=== PATIENT | female | born 1995 | race Two or more races ===

== ENCOUNTER 2020-03-05 11:51 | Emergency (ER) | payer MEDICAID, SELFPAY ==
[~2020-03-05] VITALS: Ht 149.9 cm; Wt 63.4 kg
[2020-03-05 12:01] VITALS: BP 118/72
--- NOTE | 2020-03-05 14:22 | NUR ---
Rosa Isela kim in [facility] - 03/05/20 at 1424 by ANIBAL Pt to room from lobby.
--- NOTE | 2020-03-05 14:24 | NUR ---
No answer when pt called to room from lobby.
--- NOTE | 2020-03-05 14:57 | NUR ---
No answer when pt called to room from lobby.
--- NOTE | 2020-03-05 15:17 | NUR ---
NO ANSWER WHEN CALLED FOR REPEAT VITALS @ [id number].
== END 2020-03-05 15:20 | disposition left against medical advice (07) ==
LOC: ED 15:09
DX: K14.6 Glossodynia (principal); Z53.21 Procedure and treatment not carried out due to patient leaving prior to being seen by health care provider